=== PATIENT | male | born 1935 | race Caucasian/White ===

== ENCOUNTER 2018-04-28 17:16 | Emergency (ER) | payer MEDICAID, MEDICARE, OTHER ==
[~2018-04-28] VITALS: Ht 170.2 cm; Wt 73.7 kg
[~2018-04-28 17:16] MED LIST: ATOR20TA86 PO; DONE10TA43 PO; LISI20TA PO; VALS160T2 PO
[2018-04-28] MEDS ORDERED: VALS1TAB79 PO (17:40)
[2018-04-28 18:47] VITALS: BP 142/99
== END 2018-04-28 18:53 | disposition home or self-care (01) ==
LOC: EMS 17:21
DX: I10 Essential (primary) hypertension (principal); E78.00 Pure hypercholesterolemia, unspecified
CPT/HCPCS: 99283